=== PATIENT | male | born 1940 | race Caucasian/White ===

== ENCOUNTER → 2017-08-24 10:25 | Outpatient (CLI) | payer MEDICARE, SELFPAY ==
--- NOTE | 2017-08-24 | DI.CT.S_ITS ---
PROCEDURE: CT LUMBAR SPINE WO CON INDICATIONS: Continued right leg pain post surgery 1 1/2 months ago TECHNIQUE: Noncontrast 3 mm thick sections acquired from the T12 level to the sacrum. Sagittal and coronal reformats were constructed. For radiation dose reduction, the following was used: automated exposure control. COMPARISON: [facility], , L-SPINE WITHOUT CONTRAST, 03/11/2017, 14:58. FINDINGS: Image quality: Excellent. Bones: No acute vertebral body compression fractures. No suspicious lytic or blastic bony lesions. Central spinal caliber is of normal overall caliber. No pars defects. Mild levoconvex scoliotic curvature is noted. No focal AP alignment abnormality is seen. T12-L1: Moderate loss of disc height is seen. Otvk-yn-nxtfxffc disc bulge is seen. No significant neural foraminal or central canal narrowing are seen. L1-L2: Mild to moderate loss of disc height is seen. Wdmq-zl-xnzxevej disc bulge is seen. Bridging endplate osteophytes are seen on both sides. Mild bilateral neural foraminal narrowing is seen. No significant central canal narrowing. L2-L3: There is at least moderate loss of disc height on the right side. Bridging endplate osteophytes are seen on the right. Moderate generalized disc bulge is seen. There is moderate right-sided and mild left-sided neural foraminal narrowing seen. When comparison is made with the prior examination, these findings are similar. L3-L4: Mild to moderate loss of disc height is seen. Mild generalized disc bulge is seen. Bridging endplate osteophytes are seen on both sides. Mild bilateral neural foraminal narrowing is seen. Mild central canal narrowing is seen. Stable from the prior study. L4-L5: Moderate loss of disc height is seen on the left side. There is a Schmorl's node seen involving the inferior endplate of L4, as on series 5 image 27. Right hemilaminotomy changes are seen at this level, as on series 4 image 27 and on series 2 image 67. Moderate bilateral neural foraminal narrowing is seen. Minimal central canal narrowing is seen. When comparison is made with the prior examination, these findings are similar. L5-S1: Moderate loss of disc height is seen on the left side. Bridging endplate osteophytes are seen on the left. Mild generalized disc bulge is seen. There is minimal right-sided and moderate left-sided neural foraminal narrowing. No central canal narrowing is seen. When comparison is made with the prior examination, these findings are similar. Soft tissues: No retroperitoneal masses or hematomas. Visualized aorta is normal in caliber. Prominent atherosclerotic calcification is seen. A large water density right renal cyst is noted, which is incompletely included within the ocsme-lk-ostf of this study. IMPRESSION: Right hemilaminotomy changes seen at L4-L5. Otherwise, study similar to the prior MRI. Mild levoconvex lumbar scoliotic curvature is seen. Large right renal cyst incidentally noted. Dictated by: Rehan Layne M.D. on 08/24/2017 at 11:39 Approved by: Rehan Layne M.D. on 08/24/2017 at 12:02
== END ==
PROVIDERS: Family Provider Family Medicine; PCP Family Medicine; Visit Provider Orthopaedic Surgery
DX: M79.604 Pain in right leg (principal); N28.1 Cyst of kidney, acquired
CPT/HCPCS: 72131

== ENCOUNTER 2017-12-24 09:27 | Day surgery (SDC) | payer MEDICARE, SELFPAY ==
--- NOTE | 2017-12-24 | PATH_ITS ---
[facility] Accession Number: [id number] . 01 Material submitted: . PART A: PROXIMAL RIGHT COLON PART B: MID RIGHT COLON PART C: MID TRANSVERSE COLON . 02 Diagnosis: A. Biopsy Proximal Right Colon: Tubular adenoma involving all three biopsy fragments. . B. Biopsy Mid Right Colon: Tubular adenoma involving two biopsy fragments. . C. Biopsy Mid Transverse Colon: Fragment of colon mucosa with prominent lymphoid aggregate, negative for atypia. MRV/12/25/2017 . 02 Electronically signed: . Ayo Momin MD, Pathologist NPI- [id number] . 01 Gross description: . Received three formalin-filled containers, each labeled with the patient's name: . A. In a container labeled proximal right colon, the specimen consists of three 0.3-0.4 cm portions of tissue, entirely submitted in cassette A. B. In a container labeled mid right colon, the specimen consists of three less than 0.1 cm to 0.4 cm portions of tissue, entirely submitted in cassette B. C. In a container labeled mid transverse colon, the specimen consists of a 0.3 cm portion of tissue, entirely submitted in cassette C. ([id number]) /FRR . 02 Pathologist provided ICD-10: D12.2 . 02 CPT . 293532, 553392, [id number] Performed at: 01 [facility] [address], [place], [place] [id number] MD Otilio Alexandre MD Phone: [phone] Performed at: [facility] [address] [place], [place] [id number] MD Frank Osborn MD Phone: [phone]
[2017-12-24 09:47] VITALS: BMI 22.7
[2017-12-24 09:54] VITALS: BP 113/69; PULSE 71; RESP 16; TEMP 36; O2SAT 97
[2017-12-24] MEDS: SODIUM CHLORIDE 0.9% 1,000 ML 21 ML IV (10:03)
[2017-12-24] MEDS: MIDAZOLAM 5 MG/5 ML VIAL IV (12:05)
[2017-12-24] MEDS: fentaNYL 250 MCG/5 ML INJ IV (12:09)
--- NOTE | 2017-12-24 12:38 | SUR.OPER ---
MULTIPLE POSITIONING ..RIGHT AND LEFT SIDE
--- NOTE | 2017-12-24 12:45 | PM.HP.1 ---
History of Present Illness Date Patient Seen: 12/24/17 Time Patient Seen: 12:45 Chief complaint: colonoscopy [id number] Narrative: Very pleasant 77-year-old gentleman is presenting for screening colonoscopy. He denies any problems or symptoms related to his GI tract. His last colonoscopy was approximately 10 years ago in the interim he has undergone radiation for prostate cancer. He denies any family history of colon cancer or personal history of polyps Patient History Family & Social History Family History: Reviewed 12/24/17 by Melina Portillo MD Social History: household members spouse Meds Home Medications Medication Instructions Recorded Confirmed Type aspirin 81 mg PO DAILY 12/24/17 12/24/17 History diazepam 5 mg PO BEDTIME 12/24/17 12/24/17 History gabapentin 600 mg PO BID 12/24/17 12/24/17 History losartan 25 mg PO DAILY 12/24/17 12/24/17 History simvastatin 20 mg PO QPM 12/24/17 12/24/17 History tamsulosin 0.4 mg PO DAILY 12/24/17 12/24/17 History Allergies Allergy/AdvReac Type Severity Reaction Status Date / Time Penicillins Allergy Unknown Rash Verified 12/24/17 09:41 Review of Systems Review of Systems All systems reviewed & are unremarkable except as noted in HPI and below Exam Vital Signs (past 8 hours): - 12/24/17 09:54 Temperature 96.8 F L Pulse Rate 71 Respiratory Rate 16 Blood Pressure 113/69 Pulse Oximetry 97 Oxygen Delivery Method Room Air Narrative Exam Narrative: Very pleasant, thin gentleman in no distress HEENT: Normocephalic and atraumatic, pupils equal round reactive to light accommodation with anicteric sclera Lungs: Clear to auscultation bilaterally Heart: Regular rate and rhythm without murmur rub or gallop Abdomen: Soft, nontender, active bowel sounds Extremities: Warm and well perfused without edema Assessment & Plan Plan: Assessment/Plan Narrative: Pleasant gentleman here for screening colonoscopy. We discussed risks and benefits of the procedure the patient expressed a desire to complete it today
[2017-12-24 12:47] VITALS: BP 101/56; PULSE 72; RESP 10; TEMP 36.1; O2SAT 96
--- NOTE | 2017-12-24 12:47 | PM.OP.1 ---
Operative Date/Time/Diagnoses Date of procedure: 12/24/17 Time of procedure: 12:47 Pre-op diagnosis: Screening Post-op diagnosis: other (Multiple colon polyps) Procedure & Clinicians Procedure: Colonoscopy to the cecum with polypectomy x4 Same procedure as scheduled: Yes Indications: Last colonoscopy 10 years ago Surgeon: Melina Portillo Click Yes if Unassisted: Yes Anesthesia Type: Sedation (Versed 14 mg; fentanyl 250 mcg) Operative Notes Findings: 1. Adequate prep 2. Pandiverticulosis with the most significant disease in the sigmoid colon. Stiff fibrotic colon wall with multiple large and small pockets. 3. 4-5 mm sessile polyp in the proximal right colon. Removed with cold forceps and submitted for pathology 4. Two 3-4 mm polyps in the mid right colon removed with cold forceps and submitted for pathology 5. One 3-4 mm sessile polyp from the mid transverse colon removed with cold forceps and submitted for pathology 6. Grade 1 internal hemorrhoids Closure Type: not applicable Estimated Blood Loss (mL): 1 Procedure in detail: After obtaining informed consent, the patient was brought to the GI suite and placed in the left lateral decubitus position on the examination table. After placement of appropriate monitors, the patient was given incremental doses of Versed and Fentanyl until an appropriate level of sedation was achieved. A time out was held per SCOAP protocol. A digital rectal examination was performed and did not reveal any masses or obstructing lesions. The colonoscope was gently passed into the patient's anus and the entire colon navigated to the level of the cecum with profound difficulty due to the stiffness of the colon and its tortuosity. Multiple changes of position were required. Once in the cecum, the scope was withdrawn being sure to go before and beyond all mucosal folds and prominences and get an excellent examination. The findings are noted above. At the level of the rectal vault, the scope was retroflexed and the internal anal canal was examined. The scope was straightened and air aspirated from the colon. The instrument was removed from the patient's body and the procedure was concluded. The patient was allowed to awaken from sedation without difficulty and taken to the post-anesthesia care unit in good condition. Total sedation time 54 min Total withdrawal time 29 min Condition: stable Disposition: PACU Plan for aftercare: 1. Discharge to home 2. We will contact you with pathology results and other recommendations 3. Plan for next colonoscopy in 5 years or as clinically indicated
[2017-12-24 12:52] VITALS: BP 101/68; PULSE 72; RESP 10; O2SAT 97
[2017-12-24 12:59] VITALS: BP 101/64; BP 98/60; PULSE 64; RESP 11; TEMP 36.1; O2SAT 98
[2017-12-24 13:40] VITALS: BP 110/64; PULSE 68; RESP 16; TEMP 36.4; O2SAT 99
== END 2017-12-24 13:47 | disposition home or self-care (01) ==
PROVIDERS: Family Provider Family Medicine; PCP Family Medicine; Visit Provider Surgery
PROC: 0DJD8ZZ Inspection of Lower Intestinal Tract, Via Natural or Artificial Opening Endoscopic (ICD-10-PCS; CPT 45378; principal; 2017-12-24 10:45)
DX: Z12.11 Encounter for screening for malignant neoplasm of colon (principal); K57.30 Diverticulosis of large intestine without perforation or abscess without bleeding; D12.2 Benign neoplasm of ascending colon; D12.3 Benign neoplasm of transverse colon; K64.0 First degree hemorrhoids
CPT/HCPCS: 45380; 88305; 99152; 99153; J2250; J3010

== ENCOUNTER → 2019-04-26 09:28 | Outpatient (CLI) | payer MEDICARE, SELFPAY ==
--- NOTE | 2019-04-26 | DI.US.S_ITS ---
PROCEDURE: US RENAL COMPLETE INDICATIONS: RENAL CYST TECHNIQUE: Real-time scanning was performed of the kidneys and bladder, with image documentation. COMPARISON: [facility], CT, CT LUMBAR SPINE WO CON, 08/24/2017, 10:40. [facility], US, RENAL COMPLETE, 10/11/2015, 9:43. FINDINGS: Kidneys: Kidneys are normal in size. Right kidney measures 12.2 cm long; left kidney measures 12.1 cm long. Right renal cortical thickness is 1.3 cm; left renal cortical thickness is 1.1 cm. Renal cortical echotexture is normal. No hydronephrosis or nephrolithiasis. No suspicious solid mass lesions. On the right, there is a 9.7 x 6.8 x 5.8 cm simple cyst seen inferiorly and medially, which previously measured 12.1 x 2.3 x 2.1 cm. Along the inferolateral aspect of the right kidney, there is a 2 x 1.7 x 1.8 centimeter simple appearing cyst, which previously measured up to 1.4 cm. On the left, there is a parapelvic cyst within the mid to inferior aspect and measures 0.8 x 1 x 0.9 cm, which previously measured 0.8 cm. Bladder: Pre-void bladder volume is 68 mL. Post-void residual is 5 mL. Pre-void images demonstrate no intraluminal masses or stones. On pre-void images, both ureteral jets are noted with color Doppler interrogation. (Of note, ureteral jets may not be detectable in up to 25% of cases due to insufficient differences in specific gravity between ureteral and bladder urine). Miscellaneous: No free pelvic fluid. A prominent prostate gland can be seen. IMPRESSION: Simple appearing bilateral renal cysts are seen, with a slightly smaller size largest cyst on the right, now measuring up to 9.7 centimeters compared to 12.1 cm on the prior. Dictated by: Rehan Layne M.D. on 04/26/2019 at 9:23 Approved by: Rehan Layne M.D. on 04/26/2019 at 9:28
== END ==
PROVIDERS: Family Provider Family Medicine; PCP Family Medicine; Visit Provider Student in an Organized Health Care Education/Training Program
DX: N28.1 Cyst of kidney, acquired (principal)
CPT/HCPCS: 76770

== ENCOUNTER → 2019-11-15 09:55 | Outpatient (CLI) | payer MEDICARE, SELFPAY ==
--- NOTE | 2019-11-15 10:32 | DI.CT.S_ITS ---
PROCEDURE: CT ABDOMEN PELVIS W CON INDICATIONS: Benign neoplasm of cecum TECHNIQUE: After the administration of oral and intravenous contrast, 5 mm thick sections acquired from the diaphragms to the symphysis. 5 mm thick coronal and sagittal reformats were performed. For radiation dose reduction, the following was used: automated exposure control, adjustment of mA and/or kV according to patient size. COMPARISON: None. FINDINGS: Image quality: Excellent. ABDOMEN: Lung bases: Lung bases are clear. Heart size is normal. Solid organs: Liver is normal in size and enhancement. Right lobe hemangioma of the liver measuring 2.4 cm. Reference image 21/. Gallbladder is contracted, unremarkable . Biliary system is non-dilated. Pancreas enhances normally. Spleen is normal in size and enhancement. No adrenal nodules. Kidneys are normal in size and enhancement, without hydronephrosis. Exophytic right renal cyst measuring 8.5 cm. Peritoneum and bowel: Stomach, small bowel, and colon loops are normal in caliber and wall thickness. No free fluid or air. Normal appendix. Extensive sigmoid diverticulosis without evidence of diverticulitis. Nodes and vessels: No retroperitoneal or mesenteric adenopathy. Aorta and inferior vena cava are normal in caliber. Miscellaneous: No ventral hernias. PELVIS: Genitourinary: Bladder wall thickness is normal. Miscellaneous: No inguinal hernias or adenopathy. Bones: No suspicious bony lesions. No vertebral body compression fractures. IMPRESSION: 1. No evidence of acute abdominal process. 2. No evidence of metastatic disease. 3. Extensive sigmoid diverticulosis without evidence of diverticulitis. Dictated by: Shawn Ceja M.D. on 11/15/2019 at 11:45 Approved by: Shawn Ceja M.D. on 11/15/2019 at 11:49
== END ==
PROVIDERS: Family Provider Family Medicine; PCP Family Medicine; Referring Provider General Practice; Visit Provider General Practice
DX: D12.0 Benign neoplasm of cecum (principal); N28.1 Cyst of kidney, acquired; D18.09 Hemangioma of other sites; K57.30 Diverticulosis of large intestine without perforation or abscess without bleeding
CPT/HCPCS: 74177; Q9967